=== PATIENT | male | born 1990 | race Caucasian/White ===

== ENCOUNTER 2016-10-26 15:50 | Emergency (ER) | payer OTHER ==
[2016-10-26 16:09] VITALS: BP 100/71; PULSE 102; RESP 18; TEMP 98.8; O2SAT 97
--- NOTE | 2016-10-26 16:40 | UCPHY ---
H & P Time Seen by Provider: 10/26/16 16:12 Patient Type: New Smoking Status: Former smoker Constitutional: Initial Vital Signs Temperature (C) 37.1 C 10/26/16 16:05 Heart Rate 102 H 10/26/16 16:05 Respiratory Rate 18 10/26/16 16:05 Blood Pressure 100/71 10/26/16 16:05 O2 Sat (%) 97 10/26/16 16:05 O2 Delivery Mode Room Air Allergies/Adverse Reactions: No Known Allergies Allergy (Unverified 10/26/16 16:05) Home Medications: Medication Instructions Recorded Benzonatate 200 mg PO TID PRN #28 capsule 10/26/16 Cefpodoxime Proxetil [Vantin] 200 mg PO BID #20 tab 10/26/16 Medical Decision Making - Data Points Laboratory Results: 10/26/16 16:05 Influenza Typ A,B (DFA) NEGATIVE FOR FLU (NEGATIVE) Departure - Departure Disposition: Home, Routine, Self-Care Clinical Impression: Sinusitis, acute frontal Condition: Good Instructions: Sinusitis (ED) Additional Instructions: Delsym 4 tsp twice a day prn for cough or BENZONATATE Referrals: NONE *PRIMARY CARE P,. [Primary Care Provider] - As per Instructions Stand Alone Forms: Work Excuse Prescriptions: Benzonatate 200 mg PO TID PRN #28 capsule PRN Reason: Cough, Moderate Cefpodoxime Proxetil [Vantin] 200 mg PO BID #20 tab - PQRS PQRS Measurement: Not applicable
== END 2016-10-26 17:47 | disposition home or self-care (01) ==
LOC: CED 15:50
DX: J01.10 Acute frontal sinusitis, unspecified (principal)
CPT/HCPCS: 71020-PO; 87400-PO; G0463-PO